=== PATIENT | female | born 1980 | race African-American/Black ===

== ENCOUNTER 2018-02-02 07:20 | Emergency (ER) | payer OTHER, MEDICAID, SELFPAY ==
[2018-02-02 07:36] VITALS: BP 129/61; PULSE 90; RESP 16; TEMP 36.4; O2SAT 99; BMI 37.5
[2018-02-02 08:00] VITALS: BP 118/65; PULSE 82; RESP 20; O2SAT 100
--- NOTE | 2018-02-02 08:09 | DI.RAD.S_ITS ---
PROCEDURE: XR CHEST 1V INDICATIONS: chest pain TECHNIQUE: One view of the chest was acquired. COMPARISON: None. FINDINGS: Surgical changes and devices: None. Lungs and pleura: No pleural effusions or pneumothorax. Minimal right basilar linear opacities consistent with atelectasis. There is mild prominence of the pulmonary vasculature bilaterally. Mediastinum: Mediastinal contours appear normal. Heart size is normal. Bones and chest wall: No suspicious bony lesions. Overlying soft tissues appear unremarkable. IMPRESSION: Minimal right basilar atelectasis. Dictated by: Jose Chavis M.D. on 02/02/2018 at 8:53 Approved by: Jose Chavis M.D. on 02/02/2018 at 8:59
--- NOTE | 2018-02-02 08:15 | ED.GENADULT ---
HPI - General Adult General Chief complaint: Hypertension Stated complaint: HIGH BP Time Seen by Provider: 02/02/18 08:07 Source: patient Mode of arrival: ambulatory Limitations: no limitations History of Present Illness HPI narrative: Patient is a 37-year-old female with history of hypertension. She was at work she was pushing a fork lift, something she does regularly afterwards she felt extremely dizzy lightheaded took her blood pressure was 140/100. Her symptoms have completely resolved now she did not pass out she had no chest pain or heart palpitations. She was worried because her blood pressure was elevated after exercise and she did not feel right. She denies any nausea or vomiting. She does have IBS so she has some ongoing abdominal discomfort. She says she took a test 2 weeks ago when it was negative Radiation: non-radiation Related Data Allergies Allergy/AdvReac Type Severity Reaction Status Date / Time Sulfa (Sulfonamide Allergy Verified 02/02/18 07:35 Antibiotics) Review of Systems Review of Systems All systems reviewed & are unremarkable except as noted in HPI and below Constitutional Denies chills, Denies fever(s), Denies lethargy and Denies weakness Eyes Denies change in vision, Denies eye discharge, Denies irritation and Denies loss of vision Cardiovascular Denies chest pain, Denies syncope, Denies rapid heart rate, Denies irregular heart rhythm, Reports lightheadedness, Denies palpitations, Denies dyspnea, Denies dyspnea on exertion and Denies orthopnea Respiratory Denies cough, Denies dyspnea, Denies dyspnea on exertion and Denies wheezing Gastrointestinal Gastrointestinal: Reports abdominal pain, Reports nausea and Denies vomiting Genitourinary Denies hematuria, Denies flank pain, Denies urinary incontinence and Denies urinary urgency Musculoskeletal Denies back pain, Denies muscle weakness, Denies numbness and Denies tingling Neurologic Denies syncope, Denies loss of vision, Denies numbness, Denies tingling and Denies weakness Endocrine Denies palpitations Allergic/Immunologic Denies wheezing [facility] Medical History Hypertension (Acute) Social History Smoking Status: Never smoker Exam Initial Vital Signs Initial Vital Signs: Vital Signs Temperature 97.5 F L 02/02/18 07:36 Pulse Rate 90 02/02/18 07:36 Respiratory Rate 16 02/02/18 07:36 Blood Pressure 129/61 02/02/18 07:36 Pulse Oximetry 99 02/02/18 07:36 GENERAL: Well-appearing, well-nourished and in no acute distress. HEENT: Head atraumatic,EOMI, pupils reactive CARDIOVASCULAR: Regular rate and rhythm without murmurs, rubs or gallops. RESPIRATORY: Breath sounds equal bilaterally, no wheezes rales or rhonchi. ABDOMEN: Soft, nontender. Normoactive bowel sounds all 4 quadrants. No guarding or rebound. : No CVA tenderness EXTREMITIES: Normal range of motion, no clubbing or edema. Neurovascularly intact NEUROLOGICAL: Alert and oriented x4.Normal gait and speech. Cranial nerves II through XII grossly intact. SKIN: Warm, dry, no laceration, no petechiae, no rashes or lesions. Course Orders Ordered: ED Orders 02/02/18 07:33 EKG-12 Lead Routine 02/02/18 08:09 XR chest 1V Stat 02/02/18 08:33 Complete Blood Count AUTO DIFF Stat Comprehensive Metabolic Panel Stat Lipase Stat Troponin & CK Cardiac Panel Stat Vital Signs - 8 hr 02/02/18 07:36 02/02/18 08:00 02/02/18 08:30 Temperature 97.5 F L Pulse Rate 90 82 82 Respiratory Rate 16 20 14 Blood Pressure 129/61 Blood Pressure [Left Arm] 118/65 124/74 Pulse Oximetry 99 100 99 02/02/18 09:08 Temperature Pulse Rate 85 Respiratory Rate 18 Blood Pressure Blood Pressure [Left Arm] 119/74 Pulse Oximetry 100 Medical Decision Making Lab Data Lab results reviewed: Yes I reviewed the patient's lab results. Result diagrams: 02/02/18 08:33 02/02/18 08:33 Lab Results 02/02/18 02/02/18 Range/Units 08:33 08:33 WBC 9.1 (4.5-11.0) X10^3/uL RBC 4.42 (4.0-5.2) X10^6/uL Hgb 13.2 (12.0-16.0) g/dL Hct 38.3 (36-46) % MCV 86.6 (80-100) fL MCH 29.9 (26-34) PG MCHC 34.5 (30-36) % RDW 13.1 (11.6-14.8) % Plt Count 388 (150-400) X10^3/uL Neut % (Auto) 63.9 (50-75) % Lymph % (Auto) 29.4 (25-40) % [place] % (Auto) 4.5 (3-14) % Eos % (Auto) 1.4 L (2-4) % Baso % (Auto) 0.8 (0-2) % Neut # (Auto) 5800 (9647-1239) /uL Sodium 146 H (137-145) mmol/L Potassium 4.1 (3.4-5.1) mmol/L Chloride 102 (98-107) mmol/L Carbon Dioxide 27 (22-32) mmol/L BUN 12 (7-17) mg/dL Creatinine 0.80 (0.52-1.04) mg/dL Estimated GFR > 60.0 (>60) mL/min BUN/Creatinine Ratio 15.0 (6-22) Glucose 99 (70-100) mg/dL Calcium 9.5 (8.4-10.2) mg/dL Total Bilirubin 0.3 (0.2-1.3) mg/dL AST 34 (14-36) IU/L ALT 43 (9-52) IU/L Alkaline Phosphatase 78 (38-126) U/L Total Creatine Kinase 91 (30-135) U/L CK-MB (CK-2) TNP CK-MB (CK-2) Rel Index TNP Troponin I < 0.012 (0.01-0.034) ng/mL Total Protein 8.2 (6.3-8.2) g/dL Albumin 4.9 (3.5-5.0) g/dL Globulin 3.3 (1.7-4.1) g/dL Albumin/Globulin Ratio 1.5 (1.0-2.8) Lipase 62 (23-300) U/L Point of Care Testing Test Results Negative Urine Dip Bedside Urine Glucose Negative Bedside Urine Bilirubin - Negative Bedside Urine Ketone - Negative Urine Specific [place] 1.030 Bedside Urine Occult Blood - Negative Bedside Urine pH 6.0 Bedside Urine Protein +/- 15 Bedside Urine Urobilinogen - Negative Bedside Urine Nitrite - Negative Bedside Urine Leukocytes - Negative Esterase Point of care testing: Point of Care Testing Test Results Negative Urine Dip Bedside Urine Glucose Negative Bedside Urine Bilirubin - Negative Bedside Urine Ketone - Negative Urine Specific [place] 1.030 Bedside Urine Occult Blood - Negative Bedside Urine pH 6.0 Bedside Urine Protein +/- 15 Bedside Urine Urobilinogen - Negative Bedside Urine Nitrite - Negative Bedside Urine Leukocytes - Negative Esterase Imaging Data Chest x-ray: Radiologist's impression: PROCEDURE: XR CHEST 1V INDICATIONS: chest pain TECHNIQUE: One view of the chest was acquired. COMPARISON: None. FINDINGS: Surgical changes and devices: None. Lungs and pleura: No pleural effusions or pneumothorax. Minimal right basilar linear opacities consistent with atelectasis. There is mild prominence of the pulmonary vasculature bilaterally. Mediastinum: Mediastinal contours appear normal. Heart size is normal. Bones and chest wall: No suspicious bony lesions. Overlying soft tissues appear unremarkable. IMPRESSION: Minimal right basilar atelectasis. Dictated by: Jose Chavis M.D. on 02/02/2018 at 8:53 Approved by: Jose Chavis M.D. on 02/02/2018 at 8:59 ECG Data Attestation: I personally reviewed and interpreted this ECG as follows: Prior ECG tracings: not available for review Interpretation: Normal sinus rhythm rate [address] T changes no T-wave inversions no priors to compare Q-waves noted in lead 3 MDM Narrative Medical decision making narrative: Patient's blood pressure is within normal limits at this time. She is asymptomatic. She does have follow-up with a PCP next month in regards to her blood pressure medication. Discharge Plan Departure Patient Disposition: Home Clinical Impression: Hypertension Discharge Date/Time: 02/02/18 09:11 Interventions: ED Discharge Assessment Last Done: 02/02/18 09:11 Instructions: DI for High Blood Pressure Activity Restrictions/Additional Instructions: *You have been diagnosed with hypertension *What to do: At this time continue all medications *Continue to take medications as directed *Follow up with your primary care provider in 2-3 days *Return to ER if you should have chest pain shortness of breath palpitations passing or any new, worsening or concerning symptoms Referrals: Ramón Lemus MD [Non-Staff] -
[2018-02-02 08:30] VITALS: BP 124/74; PULSE 82; RESP 14; O2SAT 99
[2018-02-02 08:37] LABS: Add Manual Diff / Slide Review NO; Basophils Percent Auto 0.8 % (0-2); Eosinophils Percent Auto 1.4 % (2-4); Hematocrit 38.3 % (36-46); Hemoglobin 13.2 g/dL (12.0-16.0); Lymphocytes Percent Auto 29.4 % (25-40); Mean Corpuscular HGB Conc 34.5 % (30-36); Mean Corpuscular Hemoglobin 29.9 PG (26-34); Mean Corpuscular Volume 86.6 fL (80-100); Monocytes Percent Auto 4.5 % (3-14); Neutrophils Absolute Auto 5800 /uL (1500-7000); Neutrophils Percent Auto 63.9 % (50-75); Platelet Count 388 X10^3/uL (150-400); Red Blood Cell Count 4.42 X10^6/uL (4.0-5.2); Red Cell Distribution Width 13.1 % (11.6-14.8); White Blood Cell Count 9.1 X10^3/uL (4.5-11.0)
[2018-02-02 08:49] LABS: Alanine Aminotransferase 43 IU/L (9-52); Albumin 4.9 g/dL (3.5-5.0); Albumin Globulin Ratio 1.5 (1.0-2.8); Alkaline Phosphatase 78 U/L (38-126); Aspartate Aminotransferase 34 IU/L (14-36); Bilirubin Total 0.3 mg/dL (0.2-1.3); Blood Urea Nitrogen 12 mg/dL (7-17); Calcium 9.5 mg/dL (8.4-10.2); Carbon Dioxide 27 mmol/L (22-32); Chloride 102 mmol/L (98-107); Creatine Kinase 91 U/L (30-135); Estimated Glomerular Filt Rate > 60.0 mL/min (>60); Globulin 3.3 g/dL (1.7-4.1); Glucose 99 mg/dL (70-100); HEMOLYSIS < 15 (0-50); Lipase 62 U/L (23-300); Potassium 4.1 mmol/L (3.4-5.1); Sodium 146 mmol/L (137-145); Total Protein 8.2 g/dL (6.3-8.2)
[2018-02-02 09:01] LABS: Troponin I < 0.012 ng/mL (0.01-0.034)
[2018-02-02 09:08] VITALS: BP 119/74; PULSE 85; RESP 18; O2SAT 100
== END 2018-02-02 09:11 | disposition home or self-care (01) ==
PROVIDERS: Emergency Provider Emergency Medicine
DX: I10 Essential (primary) hypertension (principal)
CPT/HCPCS: 36415; 71045; 80053; 81003; 81025; 82550; 83690; 84484; 85025; 93005; 93010; 93041; 99283; 99285

== ENCOUNTER 2018-05-24 12:33 | Emergency (ER) | payer OTHER, MEDICAID, SELFPAY ==
[2018-05-24 12:35] VITALS: BP 140/84; PULSE 74; RESP 20; TEMP 36.4; O2SAT 98; BMI 37.5
[2018-05-24 13:49] VITALS: BP 126/70; PULSE 57; RESP 18; O2SAT 98
[2018-05-24 14:30] VITALS: BP 121/71; PULSE 59; RESP 18; O2SAT 100
--- NOTE | 2018-05-24 14:33 | ED_ITS ---
HPI - Abdominal Pain <Rhonda Johnson PA-C - Last Filed: 05/24/18 21:56> General Chief Complaint: Abdominal Pain Stated Complaint: severe abdominal pain Time Seen by Provider: 05/24/18 14:31 Source: patient Mode of arrival: ambulatory Limitations: no limitations History of Present Illness HPI narrative: This 37-year-old female comes to ED secondary to generalized abdominal pain. she states this began in 2017, has always had normal labs but was found have a gallstone so had cholecystectomy. She states that since then, pain has gotten progressively worse. She tends to get nausea with this as well. She states that she has had imaging done and recently found to have a liver mass. She states that her PCP has referred her to surgery with plan to evaluate for endometriosis. She also has a history of IBS but states she does not typically have this type of pain with that. She states that normally she has constant pain that is about a 2/10, but can function at work. Yesterday she states this was an 8/10, she could not move. She states that she took her Zofran at home and did not have vomiting. She also used THC which usually helps but did not yesterday. She took a quarter of an oxycodone left over from her cholecystectomy and states that did help. She states that today pain is about a 5/10, still bad enough that she can't work or function. She states there do not seem to be any clear exacerbating or alleviating features except for perhaps a little bit with position, somewhat worse standing up. She states that she has not had any urinary symptoms or hematuria. She denies possibility of . She states her last bowel movement was 2 days ago, usually she goes more frequently due to her IBS. She states that she does feel bloated. She states that she has some headache today and has not had anything to eat or drink. She had some URI symptoms recently that she says are largely is altered, denies cough, chest pain, dyspnea, new extremity pain or other new symptoms on systems review Related Data Previous Rx's Medication Instructions Recorded nitrofurantoin monohyd/m-cryst 100 mg PO Q12H 5 Days #10 cap 05/24/18 Allergies Allergy/AdvReac Type Severity Reaction Status Date / Time Sulfa (Sulfonamide Allergy Verified 02/02/18 07:35 Antibiotics) Review of Systems <Rhonda Johnson PA-C - Last Filed: 05/24/18 21:56> Review of Systems ROS Unobtainable: All systems reviewed & are unremarkable except as noted in HPI and below PFSH <Rhonda Johnson PA-C - Last Filed: 05/24/18 21:56> Medical History (Updated 05/24/18 @ 16:53 by Rhonda Johnson PA-C) Chronic abdominal pain (Chronic) Hypertension (Chronic) Irritable bowel syndrome (IBS) (Chronic) Surgical History (Updated 05/24/18 @ 14:55 by Rhonda Johnson PA-C) History of umbilical hernia repair (Chronic) Status post cholecystectomy (Chronic) Status post foot surgery (Chronic) Status post tonsillectomy (Chronic) Social History Smoking Status: Never smoker Social History Smoking Status: Never smoker Comment: Uses vap occasionally. Occasional ETOH, +THC Exam <Rhonda Johnson PA-C - Last Filed: 05/24/18 21:56> Narrative Exam Narrative: GENERAL APPEARANCE: Patient resting comfortably watching a video on cell phone, in no distress. HEENT: PERRL, EOMI, no scleral icterus NECK: Supple LUNGS: Clear to auscultation bilaterally. HEART: Rate and rhythm regular, normal S1 and S2, no S3 or S4. ABDOMEN: Soft, nondistended, bowel sounds present x 4 quadrants, no masses palpable, no hepatosplenomegaly. moderate diffuse tenderness without guarding or rebound, no CVAT EXTREMITIES: No edema DERMATOLOGIC: No jaundice or exanthem NEUROLOGIC: Alert and oriented with normal speech and coordination Initial Vital Signs Initial Vital Signs: Vital Signs Temperature 97.6 F 05/24/18 12:35 Pulse Rate 74 05/24/18 12:35 Respiratory Rate 20 05/24/18 12:35 Blood Pressure 140/84 05/24/18 12:35 Pulse Oximetry 98 05/24/18 12:35 <Ryanne Garg DO - Last Filed: 05/25/18 17:11> Initial Vital Signs Initial Vital Signs: Vital Signs Temperature 97.6 F 05/24/18 12:35 Pulse Rate 74 05/24/18 12:35 Respiratory Rate 20 05/24/18 12:35 Blood Pressure 140/84 05/24/18 12:35 Pulse Oximetry 98 05/24/18 12:35 Course <Rhonda Johnson PA-C - Last Filed: 05/24/18 21:56> Additional Information: Patient appears to be comfortable during her stay. Reviewed lab work, given that her pain is better today, she is afebrile, unlikely any acute surgical issue. She is already getting appropriate evaluat ion for possible endometriosis, and may also have IBS exacerbation with some constipation as well as UTI. She took 1/4 of an oxycodone yesterday at home that did help pain but she thinks that may cause constipation. She had half tablet of Percocet today and appeared comfortable with that and tramadol. Advised she can continue this at home if needed but also to take MiraLax, and advised to call and arrange follow-up with PCP on Sunday. She agrees to return if any acutely worsening symptoms in the interim Orders Ordered: Discontinued Medications Ketorolac Tromethamine (Toradol) 60 mg IM NOW ONE Stop: 05/24/18 14:48 Last Admin: 05/24/18 15:02 Dose: 60 mg Ondansetron HCl (Zofran Odt) 4 mg PO NOW ONE Stop: 05/24/18 14:48 Last Admin: 05/24/18 15:02 Dose: 4 mg Oxycodone/Acetaminophen (Percocet 5/325) 0.5 tab PO NOW ONE Stop: 05/24/18 16:04 Last Admin: 05/24/18 16:30 Dose: 0.5 tab Vital Signs - 8 hr 05/24/18 14:30 05/24/18 15:30 05/24/18 16:31 Pulse Rate 59 L 52 L 59 L Respiratory Rate 18 18 18 Blood Pressure Blood Pressure [Left Arm] 121/71 135/79 121/71 Pulse Oximetry 100 100 99 05/24/18 17:10 Pulse Rate 56 L Respiratory Rate 18 Blood Pressure 127/83 Blood Pressure [Left Arm] Pulse Oximetry 100 <Ryanne Garg DO - Last Filed: 05/25/18 17:11> Orders Ordered: Discontinued Medications Ketorolac Tromethamine (Toradol) 60 mg IM NOW ONE Stop: 05/24/18 14:48 Last Admin: 05/24/18 15:02 Dose: 60 mg Ondansetron HCl (Zofran Odt) 4 mg PO NOW ONE Stop: 05/24/18 14:48 Last Admin: 05/24/18 15:02 Dose: 4 mg Oxycodone/Acetaminophen (Percocet 5/325) 0.5 tab PO NOW ONE Stop: 05/24/18 16:04 Last Admin: 05/24/18 16:30 Dose: 0.5 tab Vital Signs - 8 hr 05/24/18 14:30 05/24/18 15:30 05/24/18 16:31 Pulse Rate 59 L 52 L 59 L Respiratory Rate 18 18 18 Blood Pressure Blood Pressure [Left Arm] 121/71 135/79 121/71 Pulse Oximetry 100 100 99 05/24/18 17:10 Pulse Rate 56 L Respiratory Rate 18 Blood Pressure 127/83 Blood Pressure [Left Arm] Pulse Oximetry 100 MDM - Abdominal Pain <Rhonda Johnson PA-C - Last Filed: 05/24/18 21:56> Medical Records Attestation: I reviewed the patient's medical records. Outside MRI report from 04/25/2018 positive for him angioma, otherwise no abnormal abdominal findings. 04/06/[address] notes possible hemangioma and left ovarian corpus luteum cyst, no other abnormal findings Lab Data Result diagrams: 05/24/18 14:47 05/24/18 14:47 Lab Results 05/24/18 05/24/18 05/24/18 Range/Units 14:47 14:47 15:13 WBC 7.5 (4.5-11.0) X10^3/uL RBC 5.38 H (4.0-5.2) X10^6/uL Hgb 15.6 (12.0-16.0) g/dL Hct 47.1 H (36-46) % MCV 87.6 (80-100) fL MCH 29.1 (26-34) PG MCHC 33.2 (30-36) % RDW 13.6 (11.6-14.8) % Plt Count 288 (150-400) X10^3/uL Neut % (Auto) 58.3 (50-75) % Lymph % (Auto) 34.2 (25-40) % [place] % (Auto) 5.1 (3-14) % Eos % (Auto) 1.5 L (2-4) % Baso % (Auto) 0.9 (0-2) % Neut # (Auto) 4300 (1220-8731) /uL Lymph # (Auto) 2600 (3559-2741) /uL [place] # (Auto) 400 (0-900) /uL Eos # (Auto) 100 (0-450) /uL Baso # (Auto) 100 (0-100) /uL Sodium 143 (137-145) mmol/L Potassium 3.8 (3.4-5.1) mmol/L Chloride 103 (98-107) mmol/L Carbon Dioxide 28 (22-32) mmol/L BUN 10 (7-17) mg/dL Creatinine 0.80 (0.52-1.04) mg/dL Estimated GFR > 60.0 (>60) mL/min BUN/Creatinine Ratio 12.5 (6-22) Glucose 81 (70-100) mg/dL Calcium 9.9 (8.4-10.2) mg/dL Total Bilirubin 0.7 (0.2-1.3) mg/dL AST 37 H (14-36) IU/L ALT 41 (9-52) IU/L Alkaline Phosphatase 92 (38-126) U/L Total Protein 9.3 H (6.3-8.2) g/dL Albumin 5.1 H (3.5-5.0) g/dL Globulin 4.2 H (1.7-4.1) g/dL Albumin/Globulin Ratio 1.2 (1.0-2.8) Lipase 45 (23-300) U/L Urine RBC 0-1/hpf (0-5/HPF) Urine WBC 10-30/hpf H (0-5/HPF) Ur Squamous Epith Cells 1-5 /hpf Urine Bacteria Few (2-10) H (None) Urine Mucus 2+ H (Negative) Ur Culture Indicated? Specimen cultured Point of care testing: Point of Care Testing Test Results Negative Urine Dip Bedside Urine Glucose Negative Bedside Urine Bilirubin + 1 Bedside Urine Ketone +/- 5 Urine Specific [place] 1.020 Bedside Urine Occult Blood +++ Bedside Urine pH 7.0 Bedside Urine Protein + 30 Bedside Urine Urobilinogen +/- 1mg Bedside Urine Nitrite - Negative Bedside Urine Leukocytes ++ 125 Esterase <Ryanne Garg, DO - Last Filed: 05/25/18 17:11> Lab Data Lab Results 05/24/18 05/24/18 05/24/18 Range/Units 14:47 14:47 15:13 WBC 7.5 (4.5-11.0) X10^3/uL RBC 5.38 H (4.0-5.2) X10^6/uL Hgb 15.6 (12.0-16.0) g/dL Hct 47.1 H (36-46) % MCV 87.6 (80-100) fL MCH 29.1 (26-34) PG MCHC 33.2 (30-36) % RDW 13.6 (11.6-14.8) % Plt Count 288 (150-400) X10^3/uL Neut % (Auto) 58.3 (50-75) % Lymph % (Auto) 34.2 (25-40) % [place] % (Auto) 5.1 (3-14) % Eos % (Auto) 1.5 L (2-4) % Baso % (Auto) 0.9 (0-2) % Neut # (Auto) 4300 (5916-3272) /uL Lymph # (Auto) 2600 (2103-3150) /uL [place] # (Auto) 400 (0-900) /uL Eos # (Auto) 100 (0-450) /uL Baso # (Auto) 100 (0-100) /uL Sodium 143 (137-145) mmol/L Potassium 3.8 (3.4-5.1) mmol/L Chloride 103 (98-107) mmol/L Carbon Dioxide 28 (22-32) mmol/L BUN 10 (7-17) mg/dL Creatinine 0.80 (0.52-1.04) mg/dL Estimated GFR > 60.0 (>60) mL/min BUN/Creatinine Ratio 12.5 (6-22) Glucose 81 (70-100) mg/dL Calcium 9.9 (8.4-10.2) mg/dL Total Bilirubin 0.7 (0.2-1.3) mg/dL AST 37 H (14-36) IU/L ALT 41 (9-52) IU/L Alkaline Phosphatase 92 (38-126) U/L Total Protein 9.3 H (6.3-8.2) g/dL Albumin 5.1 H (3.5-5.0) g/dL Globulin 4.2 H (1.7-4.1) g/dL Albumin/Globulin Ratio 1.2 (1.0-2.8) Lipase 45 (23-300) U/L Urine RBC 0-1/hpf (0-5/HPF) Urine WBC 10-30/hpf H (0-5/HPF) Ur Squamous Epith Cells 1-5 /hpf Urine Bacteria Few (2-10) H (None) Urine Mucus 2+ H (Negative) Ur Culture Indicated? Specimen cultured Point of care testing: Point of Care Testing Test Results Negative Urine Dip Bedside Urine Glucose Negative Bedside Urine Bilirubin + 1 Bedside Urine Ketone +/- 5 Urine Specific [place] 1.020 Bedside Urine Occult Blood +++ Bedside Urine pH 7.0 Bedside Urine Protein + 30 Bedside Urine Urobilinogen +/- 1mg Bedside Urine Nitrite - Negative Bedside Urine Leukocytes ++ 125 Esterase Discharge Plan Departure Patient Disposition: Home Clinical Impression: Abdominal pain Qualifiers: Abdominal location: generalized Qualified Code(s): R10.84 - Generalized abdominal pain UTI (urinary tract infection) Qualifiers: Urinary tract infection type: acute cystitis Hematuria presence: without hematuria Qualified Code(s): N30.00 - Acute cystitis without hematuria Discharge Date/Time: 05/24/18 17:10 Interventions: ED Discharge Assessment Last Done: 05/24/18 17:10 Instructions: DI for Urinary Tract Infection (UTI), DI for Abdominal Pain-Adult Activity Restrictions/Additional Instructions: As we talked about, you should return if you have any acutely worsening symptoms over the weekend, or new symptoms such as fever or vomiting. I agree that your chronic pain could be caused by endometriosis, and this could be exacerbated by constipation and IBS as well as a urinary infection. Please start the antibiotic for the infection while waiting for the cultures since there is some bacteria in your urine on microscopic analysis. Please call your PCP and set up a follow-up visit for Sunday. Let them know you were seen here with abdominal pain, as we like to follow this closely with serial exams. Try 1st to use NSAIDs such as ibuprofen or Aleve for your pain (800 mg of ibuprofen every 8 hours or 2 tablets of Aleve every 12 hours), and then you can add a little bit of the oxycodone as needed. Continue your Zofran as needed. Please add some MiraLax as well for constipation (you can get this [id number] at the pharmacy when you go to chart picker your antibiotic prescription) Prescriptions: New nitrofurantoin monohyd/m-cryst 100 mg capsule 100 mg PO Q12H 5 Days Qty: 10 RF: 0 Referrals: Ne Nino [Non-Staff] - <Ryanne Garg DO - Last Filed: 05/25/18 17:11> Cosign ED Attending Cosignature Attestation: I was immediately available in the department for consultation. This documentation has been reviewed and I agree with assessment and plan. Supervised by Ryanne Garg DO
[2018-05-24] MEDS: KETOROLAC 60 MG/2 ML VIAL IM (15:02)
[2018-05-24] MEDS: ONDANSETRON 4 MG ODT PO (15:02)
[2018-05-24 15:23] LABS: Add Manual Diff / Slide Review NO; Basophils Absolute Auto 100 /uL (0-100); Basophils Percent Auto 0.9 % (0-2); Eosinophils Absolute Auto 100 /uL (0-450); Eosinophils Percent Auto 1.5 % (2-4); Hematocrit 47.1 % (36-46); Hemoglobin 15.6 g/dL (12.0-16.0); Lymphocytes Absolute Auto 2600 /uL (1100-4500); Lymphocytes Percent Auto 34.2 % (25-40); Mean Corpuscular HGB Conc 33.2 % (30-36); Mean Corpuscular Hemoglobin 29.1 PG (26-34); Mean Corpuscular Volume 87.6 fL (80-100); Monocytes Absolute Auto 400 /uL (0-900); Monocytes Percent Auto 5.1 % (3-14); Neutrophils Absolute Auto 4300 /uL (1500-7000); Neutrophils Percent Auto 58.3 % (50-75); Platelet Count 288 X10^3/uL (150-400); Red Blood Cell Count 5.38 X10^6/uL (4.0-5.2); Red Cell Distribution Width 13.6 % (11.6-14.8); White Blood Cell Count 7.5 X10^3/uL (4.5-11.0)
[2018-05-24 15:30] VITALS: BP 135/79; PULSE 52; RESP 18; O2SAT 100
[2018-05-24 15:36] LABS: Alanine Aminotransferase 41 IU/L (9-52); Albumin 5.1 g/dL (3.5-5.0); Albumin Globulin Ratio 1.2 (1.0-2.8); Alkaline Phosphatase 92 U/L (38-126); Aspartate Aminotransferase 37 IU/L (14-36); BUN Creatinine Ratio 12.5 (6-22); Bilirubin Total 0.7 mg/dL (0.2-1.3); Blood Urea Nitrogen 10 mg/dL (7-17); Calcium 9.9 mg/dL (8.4-10.2); Carbon Dioxide 28 mmol/L (22-32); Chloride 103 mmol/L (98-107); Estimated Glomerular Filt Rate > 60.0 mL/min (>60); Globulin 4.2 g/dL (1.7-4.1); Glucose 81 mg/dL (70-100); HEMOLYSIS 28 (0-50); Lipase 45 U/L (23-300); Potassium 3.8 mmol/L (3.4-5.1); Sodium 143 mmol/L (137-145); Total Protein 9.3 g/dL (6.3-8.2)
[2018-05-24 16:26] LABS: Bacteria Urine Few (2-10); Culture Indicated Urine Specimen Cultured; Mucus Urine 2+ (Negative); RBC Urine 0-1/HPF (0-5/HPF); Squamous Epithelial Cell Urine 1-5 /HPF; WBC Urine 10-30/HPF (0-5/HPF)
[2018-05-24] MEDS: OXYCODONE/ACETAMINOPHEN 5/325 TABLET 0.5 TAB PO (16:30)
[2018-05-24 16:31] VITALS: BP 121/71; PULSE 59; RESP 18; O2SAT 99
[2018-05-24 17:10] VITALS: BP 127/83; PULSE 56; RESP 18; O2SAT 100
== END 2018-05-24 17:10 | disposition home or self-care (01) ==
PROVIDERS: Emergency Provider Internal Medicine
DX: R10.84 Generalized abdominal pain (principal); N30.00 Acute cystitis without hematuria
CPT/HCPCS: 36415; 80053; 81003; 81015; 81025; 83690; 85025; 87086; 96372; 99283; J1885